=== PATIENT | male | born 1985 | race Asian ===

== ENCOUNTER 2017-06-14 10:02 | Emergency (ER) | payer OTHER | END 2017-06-14 11:08 | disposition left against medical advice (07) | LOC: ER 10:03 | DX: R50.9 Fever, unspecified (principal); Z53.21 Procedure and treatment not carried out due to patient leaving prior to being seen by health care provider ==

== ENCOUNTER 2019-09-01 11:46 | Emergency (ER) | payer MEDICAID, OTHER ==
[~2019-09-01] VITALS: Ht 165.1 cm; Wt 77.0 kg
[2019-09-01 12:30] VITALS: BP 137/85
== END 2019-09-01 13:01 | disposition home or self-care (01) ==
LOC: ER 11:47
DX: F11.20 Opioid dependence, uncomplicated (principal); F15.90 Other stimulant use, unspecified, uncomplicated
CPT/HCPCS: 99281